=== PATIENT | male | born 1965 | race Caucasian/White ===

== ENCOUNTER 2018-02-17 11:56 | Outpatient (CLI) | payer BC | END 2018-02-17 11:57 | disposition home or self-care (01) | LOC: LABBT 11:56 | PROVIDERS: ATTEND Specialist | DX: Z01.818 Encounter for other preprocedural examination (principal); K40.90 Unilateral inguinal hernia, without obstruction or gangrene, not specified as recurrent | CPT/HCPCS: 93005; 93010 ==

== ENCOUNTER 2018-02-23 08:25 | Day surgery (SDC) | payer BC ==
--- NOTE | 2018-02-17 12:18 | HP ---
HISTORY: Thea Pérez is a 53-year-old male patient from [facility] living here for the past 19 years. For the past 4 or 5 years he has had an enlarging left inguinal hernia that has recently become painf ul to him. He is asymptomatic on the right. Exam in the office reveals clinically absence of a herni a on the right. Plan is for robotic repair of left inguinal hernia and if laparoscopically robotical ly appreciated mesh repair of a right inguinal hernia, although unlikely. ALLERGIES: PENICILLIN. MEDICATIONS: None. TOBACCO: 1/2 pack per day. ALCOHOL: None. PAST SURGICAL HISTORY: In 1994, peptic ulcer surgery, upper midline laparotomy. Left small finger s urgery. PAST MEDICAL HISTORY: Colonoscopy several years ago, normal. SOCIAL HISTORY: Patient is employed doing maintenance. He does not do heavy lifting routinely. His hernia has become more bothersome on day to day work activities. REVIEW OF SYSTEMS: Ten point noncontributory. FAMILY HISTORY: Negative. PHYSICAL EXAMINATION: VITAL SIGNS: Weight 184 pounds, 6 foot tall, 25 BMI, 154/101, 77, 97.5 degrees. HEENT: Unremarkable. LUNGS: Clear to auscultation. CARDIAC: Regular rate and rhythm without murmur or gallop. ABDOMEN: Soft, nontender, nondistended. Upper midline laparotomy scar well healed. No hernias, inc isional. : Testicles normal. Right groin without hernia on standing Valsalva maneuvers, left inguinal kanu ia present on standing and exacerbated with Valsalva. EXTREMITIES: No ankle edema. Good pulses. LYMPH: No lymphadenopathy in neck, axilla or groins. NEURO: Neurologically intact. No deficit. ASSESSMENT AND PLAN: Left inguinal hernia. Plan robotic endoscopic mesh repair and if indicated rep air on the right side. Risk of infection, bleeding, reoperation, recurrence of hernia discussed. Qu estions answered.
[2018-02-17 12:21] VITALS: BMI 25.2
[2018-02-23] MEDS ORDERED: Ketorolac Tromethamine 30 MG/ML VIAL ONE (09:41)
[2018-02-23] MEDS ORDERED: Levofloxacin 500 mg/D5W 100 ml Premix Bag ONE (09:41)
[2018-02-23] MEDS ORDERED: Bupivacaine HCl 0.5%/Epinephrine 1:200,000/PF 30 ml Vial ONE (12:11)
[2018-02-23] MEDS ORDERED: Midazolam HCl 2 mg/2 ml Vial ONE (12:46)
[2018-02-23] MEDS ORDERED: Fentanyl 100 MCG/2 ML VIAL ONE ×2 (12:46→14:38)
[2018-02-23] MEDS ORDERED: Glycopyrrolate 0.2 MG/ML 5 ML SYRINGE ONE (13:54)
[2018-02-23] MEDS ORDERED: PROPOFOL 200 MG/20 ML VIAL ONE (13:54)
[2018-02-23] MEDS ORDERED: Lidocaine 1% PF 5 ML VIAL ONE (13:54)
[2018-02-23] MEDS ORDERED: diphenhydrAMINE 50 MG/ML VIAL ONE (13:54)
[2018-02-23] MEDS ORDERED: Dexamethasone 20 MG/5 ML VIAL ONE (13:54)
[2018-02-23] MEDS ORDERED: Ondansetron HCl/PF 4 MG/2 ML Vial ONE (13:54)
[2018-02-23] MEDS ORDERED: HYDROcodone/Acetaminophen 5/325 mg Tablet ONE (17:06)
--- NOTE | 2018-02-23 21:03 | OP ---
DATE OF PROCEDURE: 02/23/2018 PREOPERATIVE DIAGNOSIS: Left inguinal hernia. POSTOPERATIVE DIAGNOSIS: Direct left inguinal hernia, PROCEDURE: 3DMax large repair of direct left inguinal hernia, robotic. SURGEON: Dr. Cory Hopkins ANESTHESIA: General. Local 0.5% Marcaine with epinephrine 30 mL. PROCEDURE: The patient was taken to the operating room. Under general anesthesia, Marsh catheter wa s placed in the beginning of the procedure and removed at the end. Abdomen prepared with ChloraPrep, draped in routine fashion. Table was flexed and placed in Trendelenburg. Because of a supraumbilic al midline incision for ulcer surgery, left lateral subcostal incision made and pneumoperitoneum to 1 5 mmHg obtained. Starts with the Veress needle and replaced with 8 mm port and robotic endoscope sofia bandar into the abdominal cavity visualizing the right subcostal area, free of adhesions and incision ma de and another 8 mm port placed. The endoscope moved to this port and visualized the midline, free o f adhesions and midline incision made supraumbilical through the old scar and an 11 mm port placed an d endoscope placed. The robot was docked, positioned and robotic hernia repair undertaken by taking down the peritoneum superiorly at the level of the anterior superior iliac spine to the midline and d eveloping the flap medially identifying Cirilo's ligament, developing laterally towards the iliac spi ne. Dissection carried out freeing the direct hernia sac free from the defect. Cord structures iden tified, dissected free. Lipoma of the cord dissected free and left with the peritoneum. Epigastric vessels identified and kept free of harm. 3DMax left mesh placed through the 11 mm port into the abd ominal cavity, positioned in proper position, sutured it to Cirilo's ligament with a 2-0 Vicryl and t hen sutured to the anterior abdominal wall with 2-0 Vicryl just lateral to the epigastric vessels. T he mesh was properly positioned and well covering the defect. Peritoneum closed with continuous sutu re of 2-0 Stratafix laterally, still covering the mesh completely. Good hernia repair undertaken. R ight inguinal area was without hernia. Good hemostasis noted. Needle was removed. Pneumoperitoneum reduced. Midline fascia with supraumbilical closed with 0 Vicryl UR needle and skin incision with s ubdermal 4-0 Monocryl and DermaGlue applied.
== END 2018-02-23 18:15 | disposition home or self-care (01) ==
LOC: SDC 08:25
PROVIDERS: ATTEND Specialist
PROC: 0YU64JZ Supplement Left Inguinal Region with Synthetic Substitute, Percutaneous Endoscopic Approach (ICD-10-PCS; principal; 2018-02-23)
DX: K40.90 Unilateral inguinal hernia, without obstruction or gangrene, not specified as recurrent (principal); Z88.0 Allergy status to penicillin
CPT/HCPCS: C1781; J0131; J0670; J1100; J1200; J1885; J1956; J2001; J2250; J2405; J2704; J3010

== ENCOUNTER 2018-06-18 09:29 | Inpatient (IN) | payer BC ==
[2018-06-18 10:34] LABS: #Eosinphils 0.2 thou/uL (0.0-0.7); #Lymphocytes 1.3 thou/uL (1.20-3.40); #Monocytes 0.5 thou/uL (0.11-0.59); #Neutrophils 8.3 thou/uL (1.40-6.50); %Basophils 0.2 % (0.0-1.0); %Lymphocytes 12.8 % (21.0-51.0); %Monocytes 4.3 % (0.0-10.0); %Neutrophils 80.7 % (42.0-75.0); Hemoglobin 13.9 g/dL (14.0-18.0); Mean Corpuscular HGB CONC 33.6 g/dL (32.0-36.0); Mean Corpuscular Hemoglobin 32.2 pg (27.0-31.0); Mean Corpuscular Volume 95.6 fL (78.0-98.0); Mean Platelet Volume 6.7 fL (7.4-10.4); Platelet Count 225 thou/uL (130-400); RBC Distribution Width 11.6 % (11.5-14.5); Red Blood Cell (RBC) Count 4.31 mill/uL (4.70-6.10); White Blood Cell (WBC) Count 10.3 thou/uL (4.8-10.8)
[2018-06-18 11:01] LABS: ALT (SGPT) 16 U/L (8-55); AST (SGOT) 16 U/L (5-34); Albumin 3.9 g/dL (3.5-5.0); Alkaline Phosphatase 33 U/L (40-150); Anion Gap 10 mmol/L (10-20); BUN (Urea Nitrogen) 20 mg/dL (8.4-25.7); Bilirubin, Total 0.4 mg/dL (0.2-1.2); Calc. Creatinine Clearance 0 mL/min (70-130); Carbon Dioxide 27 mmol/L (22-29); Chloride 102 mmol/L (98-107); Estimated GFR-MDRD Greater than 90; Glucose 111 mg/dL (70-105); Lipase 26 U/L (8-78); Potassium 4.2 mmol/L (3.5-5.1); Protein, Total 5.9 g/dL (6.0-8.3); Sodium 135 mmol/L (136-145)
--- NOTE | 2018-06-18 12:59 | CT ---
CT ABDOMEN AND PELVIS WITH IV CONTRAST: HISTORY: Left lower quadrant pain. The patient has a history of hernia surgery. FINDINGS: Comparison is made with the exam of 04/11/2018. There are mild dependent changes in the lung bases. There is a tiny amount of fluid anterior to the liver. No free air or lymphadenopathy is seen in the abdomen or pelvis. The liver, spleen, pancreas , adrenal glands, and kidneys are normal. No calcified gallstones are seen. There are vascular calc ifications without evidence of aneurysmal dilatation of the abdominal aorta. A normal-appearing appe ndix is seen. There are dilated fluid-filled loops of small bowel with a suggestion of transitional zone in the distal ileum. IMPRESSION: Findings are suggestive of small bowel obstruction. POS: RUSTY
[2018-06-18] MEDS ORDERED: Sodium Chloride 0.9% 1,000 ML IV SCH (13:45)
[2018-06-18] MEDS ORDERED: Iopamidol 370 76% 100 ML VIAL ONE (13:58)
[2018-06-18 15:47] VITALS: BMI 35.2
[2018-06-18] MEDS ORDERED: Ondansetron PF 4 MG/2 ML Vial IVP PRN (18:24)
[2018-06-18] MEDS: D5 1/2 NS w/20 mEq KCL 1,000 ML IV SCH (19:47)
[2018-06-18] MEDS: Pantoprazole 40 MG VIAL IVP SCH (19:47)
[2018-06-18] MEDS ORDERED: hydrALAZINE 20 MG/ML VIAL SLOW IVP PRN (21:38)
--- NOTE | 2018-06-18 21:44 | PDOC.EVN ---
Event Note - Event Note Event Note: consult #[id number] hydralazine prn for hypertension thank you for the consult
--- NOTE | 2018-06-18 22:22 | CON ---
DATE OF CONSULTATION: 06/18/2018 REASON FOR CONSULTATION: Medical management of hypertension. HISTORY OF PRESENT ILLNESS: This is a 53-year-old male who was initially admitted earlier today for abdominal pain with a concern for a small-bowel obstruction. At the time of my evaluation, the patient is currently n.p.o. He states that his abdominal pain is n ot severe, it is "okay." He denies any prior similar episodes. REVIEW OF SYSTEMS: As per HPI. Constitutional: Denies any fevers or chills. No headaches. No vis ion changes. Cardiovascular: No chest pain or chest pressure. Respiratory: No shortness of breath , difficulty with breathing, or congestion. Gastrointestinal: Abdominal pain as above. Currently, no active nausea. No active abdominal pain. No active diarrhea or constipation. It appears that he had a bowel movement earlier. Musculoskeletal: No active myalgias or arthralgias. Genitourinary: No dysuria or changes in urinary frequency or quality. The remainder of the review of systems is otherwise negative. PAST MEDICAL HISTORY: Significant for hernia, peptic ulcer disease. HOME MEDICATIONS: None. SOCIAL HISTORY: No alcohol, tobacco, or illicit drug use reported. FAMILY HISTORY: The patient denies any family history of hypertension, cardiovascular disease, or re nal disease. PHYSICAL EXAMINATION: GENERAL: The patient is awake, alert, appropriate. VITAL SIGNS: Temperature of 98.2, pulse of 68, respirations 16, saturating 96% on room air, blood pr essure 168/105. HEENT: Normocephalic, atraumatic. Moist mucous membranes. Extraocular motions are intact. CARDIOVASCULAR: S1, S2. No murmurs, rubs, or gallops. Pulses 2+ in bilateral upper extremities. N o pitting pedal edema. No carotid bruits. RESPIRATORY: Reasonable air movement. No conversational dyspnea. Clear to auscultation bilaterally without wheezes, rales, or rhonchi. ABDOMEN: Positive bowel sounds. Soft. Grossly nontender to palpation. MUSCULOSKELETAL: Moving all 4 extremities independently. LABORATORY DATA AND IMAGING: WBC 10.3, hemoglobin 13.9, hematocrit 41.2, platelets 225. Sodium 135, potassium 4.2, chloride 102, bicarbonate 27, BUN 20, creatinine 0.87, glucose 111, lactic acid 1.1, calcium 9, total bilirubin 0.4, AST 16, ALT 16, alkaline phosphatase 33, total protein 5.9, albumin 3 .9, globulin 2, lipase 26. 06/18/2018 CT of the abdomen and pelvis impression: "Findings are sugges tive of small-bowel obstruction." ASSESSMENT AND PLAN: This is a 53-year-old male presenting with a chief complaint of abdominal pain. 1. Abdominal pain, small-bowel obstruction concern. The patient is currently n.p.o., IV fluids, IV pain control as per Surgery management. 2. Hypertension while inpatient without a known history of hypertensive disease. Of note, the [facility] does not have a routine PCP or outpatient care, so it is not clear whether or not this is novel hy pertensive disease or perhaps undertreated chronic hypertension. Regardless, the patient is currentl y n.p.o. We will utilize p.r.n. hydralazine. Continue to closely monitor patient's vital signs. He is otherwise currently hemodynamically stable. 3. Activity: As tolerated. 4. Deep venous thrombosis prophylaxis with sequentials. Thank you for asking us to consult on the patient. We will follow along with you.
[2018-06-19] MEDS: D5 1/2 NS w/20 mEq KCL 1,000 ML IV SCH ×3 (01:29→16:38)
[2018-06-19 05:18] LABS: #Eosinphils 0.4 thou/uL (0.0-0.7); #Lymphocytes 1.9 thou/uL (1.20-3.40); #Monocytes 0.5 thou/uL (0.11-0.59); #Neutrophils 3.3 thou/uL (1.40-6.50); %Basophils 0.5 % (0.0-1.0); %Eosinophils 7.2 % (0.0-10.0); %Lymphocytes 31.1 % (21.0-51.0); %Neutrophils 53.3 % (42.0-75.0); Hemoglobin 13.9 g/dL (14.0-18.0); Mean Corpuscular HGB CONC 33.2 g/dL (32.0-36.0); Mean Corpuscular Hemoglobin 31.6 pg (27.0-31.0); Mean Corpuscular Volume 95.2 fL (78.0-98.0); Mean Platelet Volume 6.7 fL (7.4-10.4); Platelet Count 206 thou/uL (130-400); RBC Distribution Width 11.5 % (11.5-14.5); Red Blood Cell (RBC) Count 4.39 mill/uL (4.70-6.10); White Blood Cell (WBC) Count 6.2 thou/uL (4.8-10.8)
[2018-06-19 05:30] LABS: Anion Gap 8 mmol/L (10-20); BUN (Urea Nitrogen) 12 mg/dL (8.4-25.7); Calc. Creatinine Clearance 185 mL/min (70-130); Calcium 8.7 mg/dL (7.8-10.44); Carbon Dioxide 28 mmol/L (22-29); Chloride 108 mmol/L (98-107); Estimated GFR-MDRD Greater than 90; Glucose 105 mg/dL (70-105); Potassium 3.8 mmol/L (3.5-5.1); Sodium 140 mmol/L (136-145)
[2018-06-19] MEDS ORDERED: Acetaminophen 650 MG Suppository PR PRN (07:30)
[2018-06-19] MEDS ORDERED: Bisacodyl 10 MG SUPP PR PRN (07:30)
[2018-06-19] MEDS ORDERED: Eucerin (Mineral Oil/Petrolatum,White) 30 gm Jar TOP PRN (07:30)
[2018-06-19] MEDS ORDERED: Sodium Chloride 0.65% Nasal 44 ML BOT EA NARE PRN (07:30)
[2018-06-19] MEDS ORDERED: Artificial Tears 18 DROP/0.9 ML EA EYE PRN (07:30)
[2018-06-19] MEDS ORDERED: Morphine 2 MG/ML SYRINGE SLOW IVP PRN (10:00)
--- NOTE | 2018-06-19 10:37 | PDOC.PN ---
- Subjective Encounter Start Date: 06/19/18 Encounter Start Time: 08:15 -: old records requested/rev Patient seen and examined. No new complaints. No overnight events he had BM this morning and he is passing gas - Objective MAR Reviewed: Yes Vital Signs & Weight: Vital Signs (12 hours) Temp Pulse Resp BP Pulse Ox 06/19/18 07:28 99.3 F 70 14 134/89 98 06/19/18 04:27 98.2 F 68 16 154/102 H 96 06/19/18 00:00 98.3 F 72 16 147/83 H 96 Weight Weight 260 lb Result Diagrams: 06/19/18 04:54 06/19/18 04:54 Radiology Reviewed by me: Yes Phys Exam - Physical Examination Constitutional: NAD HEENT: PERRLA, moist MMs, sclera anicteric Neck: no JVD, supple Respiratory: no wheezing, no rales, no rhonchi Cardiovascular: RRR, no significant murmur, no rub Gastrointestinal: soft, non-tender, no distention, positive bowel sounds Musculoskeletal: no edema, pulses present Neurological: non-focal, normal sensation, moves all 4 limbs Psychiatric: normal affect, A&O x 3 Skin: no rash, normal turgor Dx/Plan (1) SBO (small bowel obstruction) Code(s): K56.609 - UNSP INTESTNL OBST, UNSP TO PARTIAL VERSUS COMPLETE OBST Status: Acute (2) Hypertension Code(s): I10 - ESSENTIAL (PRIMARY) HYPERTENSION Status: Chronic (3) Obesity (BMI 30-39.9) Code(s): E66.9 - OBESITY, UNSPECIFIED Status: Chronic - Plan cont current plan of care, plan discussed w/ family * seems like his SBO has improved * Diet advancement as per primary team * as pt was not on BP meds at home, and his BP seems controlled, he will need outpt follow up and monitoring * discussed with * discharge per primary team * code status- full code. Review of Systems - Review of Systems ENT: negative: Ear Pain, Ear Discharge, Nose Pain, Nose Discharge, Nose Congestion, Mouth Pain, Mouth Swelling, Throat Pain, Throat Swelling, Other Respiratory: negative: Cough, Dry, Shortness of Breath, Hemoptysis, SOB with Excertion, Pleuritic Pain, Sputum, Wheezing Cardiovascular: negative: chest pain, palpitations, orthopnea, paroxysmal nocturnal dyspnea, edema, light headedness, other Gastrointestinal: negative: Nausea, Vomiting, Abdominal Pain, Diarrhea, Constipation, Melena, Hematochezia, Other Genitourinary: negative: Dysuria, Frequency, Incontinence, Hematuria, Retention , Other Musculoskeletal: negative: Neck Pain, Shoulder Pain, Arm Pain, Back Pain, Hand Pain, Leg Pain, Foot Pain, Other Skin: negative: Rash, Lesions, Jean, Bruising, Other - Medications/Allergies Allergies/Adverse Reactions: Allergies Allergy/AdvReac Type Severity Reaction Status Date / Time Penicillins Allergy Verified 02/17/18 12:22 Medications: Current Medications Acetaminophen (Tylenol) 650 mg [place] Q4H PRN PRN Reason: Fever > 101 Artificial Tears (Tears Naturale) 2 drop EA EYE PRN PRN PRN Reason: Dry Eyes Bisacodyl (Dulcolax) 10 mg [place] DAILYPRN PRN PRN Reason: Constipation Hydralazine HCl (Apresoline) 10 mg SLOW IVP Q4H PRN PRN Reason: Hypertension Potassium Chloride/Dextrose/Sod Cl (D5 1/2 Ns W/20 Meq Kcl) 1,000 mls @ 125 mls /hr IV .Q8H DORON Last Admin: 06/19/18 09:31 Dose: 1,000 mls Mineral Oil/White Petrolatum (Eucerin Cream) 0 gm TOP BIDPRN PRN PRN Reason: Dry Skin Morphine Sulfate (Morphine) 2 mg SLOW IVP Q4H PRN PRN Reason: Severe Pain (7-10) Last Admin: 06/19/18 10:14 Dose: 2 mg Ondansetron HCl (Zofran) 4 mg IVP Q4H PRN PRN Reason: Nausea/Vomiting Pantoprazole Sodium (Protonix) 40 mg IVP 2100 DORON Last Admin: 06/18/18 19:47 Dose: 40 mg Sodium Chloride (Flush - Normal Saline) 10 ml IVF Q12HR DORON Sodium Chloride (Flush - Normal Saline) 10 ml IVF PRN PRN PRN Reason: Saline Flush Sodium Chloride ([place] Nasal [place] 0.65%) 0 ml EA NARE QIDPRN PRN PRN Reason: Nasal Congestion
--- NOTE | 2018-06-19 12:00 | RAD ---
KUB: HISTORY: Small bowel obstruction. COMPARISON: CT examination done earlier yesterday. FINDINGS: There is air within both small and large bowel, still with some small bowel distention. The loops ar e predominantly fluid-filled and, therefore, more difficult to assess. There is air throughout the c olon. IMPRESSION: Persistent distention of some of the small bowel loops, some of which appear fluid-filled. It does n ot appear worse and may be slightly improved as compared to the prior study. POS: RUSTY
--- NOTE | 2018-06-19 12:52 | HP ---
CHIEF COMPLAINT: Abdominal pain. HISTORY OF PRESENT ILLNESS: This is a 53-year-old male in his usual state of health until about 24 h ours ago when he developed mid lower abdominal pain associated with nausea and diaphoresis. He was b rought in where a CT scan suggested a small-bowel obstruction. He reports that he had a left inguina l hernia repair in February and since then, he has been having chronic pain. He said he had a bowel move ment today and a little bit of flatus, but he does feel better. PAST MEDICAL HISTORY: Otherwise, healthy. PAST SURGICAL HISTORY: Left inguinal hernia repair. He had an ulcer surgery in [facility] in 1994. MEDICATIONS: He is on no medications. ALLERGIES: He is allergic to PENICILLIN. SOCIAL HISTORY: He is . He is a vehicle maintenance technician. No tobacco or alcohol. He speaks [place] an. FAMILY HISTORY: Diabetes. PHYSICAL EXAMINATION: VITAL SIGNS: Temperature 99.3, pulse 70, blood pressure 134/89. GENERAL: He is awake, alert, in no apparent distress. He does not have an NG tube. Attempts x3 wer e unsuccessful due to sinus problems and he refuses an NG tube. LUNGS: Clear. HEART: Regular rate and rhythm. ABDOMEN: Soft. He has a well-healed surgical scar in the upper midline and in the left inguinal are a. There are no palpable hernias. EXTREMITIES: Unremarkable. LABORATORY AND X-RAY FINDINGS: White count 6.2, H and H 13 and 41, platelet count 206,000. Electrol ytes are fine. KUB shows some dilated loops of small bowel, but it appears to be slightly improved. ASSESSMENT: Small-bowel obstruction. PLAN: Bowel rest. IV fluids.
[2018-06-19] MEDS: Pantoprazole 40 MG VIAL IVP SCH (20:43)
[2018-06-20] MEDS: D5 1/2 NS w/20 mEq KCL 1,000 ML IV SCH ×3 (00:50→18:29)
--- NOTE | 2018-06-20 09:24 | RAD ---
ABDOMEN 1 VIEW: HISTORY: A 53-year-old male with a history of small bowel obstruction. COMPARISON: 06/19/2018. FINDINGS: There is some gas in the colon. There are some mildly dilated loops of small bowel with some air and fluid within them in the mid abdomen. IMPRESSION: Evidence for some persistent at least partial small bowel obstruction. Continue short-term followup and consider the possibility of a Gastrografin small bowel for further assessment. POS: RUSTY
--- NOTE | 2018-06-20 09:43 | PDOC.PN ---
- Subjective Encounter Start Date: 06/20/18 Encounter Start Time: 08:00 Patient seen and examined. No new complaints. No overnight events - Objective MAR Reviewed: Yes Vital Signs & Weight: Vital Signs (12 hours) Temp Pulse Resp BP Pulse Ox 06/20/18 07:58 98.2 F 65 16 145/97 H 94 L 06/20/18 03:53 98.1 F 67 16 148/95 H 94 L 06/20/18 00:00 98 F 68 16 144/87 H 94 L Weight Weight 260 lb I&O: 06/19/18 06/20/18 06/21/18 06:59 06:59 06:59 Intake Total 880 1500 Balance 880 1500 Result Diagrams: 06/19/18 04:54 06/19/18 04:54 Radiology Reviewed by me: Yes (xray abdomen reviewed) Phys Exam - Physical Examination Constitutional: NAD HEENT: PERRLA, moist MMs, sclera anicteric Neck: no JVD, supple Respiratory: no wheezing, no rales, no rhonchi Cardiovascular: RRR, no significant murmur, no rub Gastrointestinal: soft, non-tender, no distention, positive bowel sounds Musculoskeletal: no edema, pulses present Neurological: non-focal, normal sensation, moves all 4 limbs Psychiatric: normal affect, A&O x 3 Skin: no rash, normal turgor Dx/Plan (1) SBO (small bowel obstruction) Code(s): K56.609 - UNSP INTESTNL OBST, UNSP TO PARTIAL VERSUS COMPLETE OBST Status: Acute (2) Hypertension Code(s): I10 - ESSENTIAL (PRIMARY) HYPERTENSION Status: Chronic (3) Obesity (BMI 30-39.9) Code(s): E66.9 - OBESITY, UNSPECIFIED Status: Chronic - Plan cont current plan of care, plan discussed w/ family * medication reviewed as below * symptomatic treatment * diet advancement as per primary team * medically stable Review of Systems - Review of Systems Eyes: negative: Pain, Vision Change, Conjunctivae Inflammation, Eyelid Inflammation, Redness, Other ENT: negative: Ear Pain, Ear Discharge, Nose Pain, Nose Discharge, Nose Congestion, Mouth Pain, Mouth Swelling, Throat Pain, Throat Swelling, Other Respiratory: negative: Cough, Dry, Shortness of Breath, Hemoptysis, SOB with Excertion, Pleuritic Pain, Sputum, Wheezing Cardiovascular: negative: chest pain, palpitations, orthopnea, paroxysmal nocturnal dyspnea, edema, light headedness, other Gastrointestinal: negative: Nausea, Vomiting, Abdominal Pain, Diarrhea, Constipation, Melena, Hematochezia, Other Genitourinary: negative: Dysuria, Frequency, Incontinence, Hematuria, Retention , Other Musculoskeletal: negative: Neck Pain, Shoulder Pain, Arm Pain, Back Pain, Hand Pain, Leg Pain, Foot Pain, Other Skin: negative: Rash, Lesions, Jean, Bruising, Other - Medications/Allergies Allergies/Adverse Reactions: Allergies Allergy/AdvReac Type Severity Reaction Status Date / Time Penicillins Allergy Verified 02/17/18 12:22 Medications: Current Medications Acetaminophen (Tylenol) [address] Q4H PRN PRN Reason: Fever > 101 Artificial Tears (Tears Naturale) 2 drop EA EYE PRN PRN PRN Reason: Dry Eyes Bisacodyl (Dulcolax) [address] DAILYPRN PRN PRN Reason: Constipation Hydralazine HCl (Apresoline) 10 mg SLOW IVP Q4H PRN PRN Reason: Hypertension Potassium Chloride/Dextrose/Sod Cl (D5 1/2 Ns W/20 Meq Kcl) 1,000 mls @ 125 mls /hr IV .Q8H DORON Last Admin: 06/20/18 08:52 Dose: 1,000 mls Mineral Oil/White Petrolatum (Eucerin Cream) 0 gm TOP BIDPRN PRN PRN Reason: Dry Skin Morphine Sulfate (Morphine) 2 mg SLOW IVP Q4H PRN PRN Reason: Severe Pain (7-10) Last Admin: 06/19/18 10:14 Dose: 2 mg Ondansetron HCl (Zofran) 4 mg IVP Q4H PRN PRN Reason: Nausea/Vomiting Pantoprazole Sodium (Protonix) 40 mg IVP 2100 DORON Last Admin: 06/19/18 20:43 Dose: 40 mg Sodium Chloride (Flush - Normal Saline) 10 ml IVF Q12HR DORON Last Admin: 06/20/18 09:03 Dose: Not Given Sodium Chloride (Flush - Normal Saline) 10 ml IVF PRN PRN PRN Reason: Saline Flush Sodium Chloride ([place] Nasal [place] 0.65%) 0 ml EA NARE QIDPRN PRN PRN Reason: Nasal Congestion
--- NOTE | 2018-06-20 09:43 | PRG ---
DATE OF SERVICE: 06/20/2018 SUBJECTIVE: The patient feels a lot better. He is having no pain. No nausea or vomiting. He is pa ssing gas, passing bowel movements. X-ray is much improved. There was still a tiny little area of d ilated small bowel, but he had a lot of air in his colon. OBJECTIVE: VITAL SIGNS: His temperature is 98.2, pulse 65, blood pressure 145/97. GENERAL: He looks good. ABDOMEN: Soft, nondistended, nontender. ASSESSMENT: Small-bowel obstruction, resolving. PLAN: Begin clear liquids.
[2018-06-20] MEDS: Pantoprazole 40 MG VIAL IVP SCH (21:34)
[2018-06-21] MEDS: D5 1/2 NS w/20 mEq KCL 1,000 ML IV SCH ×3 (03:16→21:32)
--- NOTE | 2018-06-21 07:43 | PRG ---
DATE OF SERVICE: 06/21/2018 SUBJECTIVE: The patient states he has no abdominal pain, no nausea or vomiting, but is not passing a ny flatus nor bowel movement. He tried drinking fluids and when he did try to drink some clear liqui ds he did have some abdominal pain and cramps. PHYSICAL EXAMINATION: VITAL SIGNS: Temperature is 97.9, pulse 72, blood pressure 146/93. GENERAL: He looks fine, in no apparent distress. ABDOMEN: Soft, nondistended. He has some bowel sounds present. ASSESSMENT: Partial small-bowel obstruction. PLAN: Small bowel follow through today.
--- NOTE | 2018-06-21 09:52 | PDOC.PN ---
- Subjective Encounter Start Date: 06/21/18 Encounter Start Time: 08:30 Patient seen and examined. No new complaints. No overnight events he does not pass gas or had BM - Objective MAR Reviewed: Yes Vital Signs & Weight: Vital Signs (12 hours) Temp Pulse Resp BP Pulse Ox 06/21/18 08:27 98.1 F 74 16 145/90 H 95 06/21/18 04:00 97.9 F 72 16 146/93 H 96 06/20/18 23:43 97.9 F 62 16 165/98 H 97 Weight Weight 260 lb I&O: 06/20/18 06/21/18 06/22/18 06:59 06:59 06:59 Intake Total 880 1500 1500 Balance 880 1500 1500 Result Diagrams: 06/19/18 04:54 06/19/18 04:54 Radiology Reviewed by me: Yes (small bowel xray) Phys Exam - Physical Examination Constitutional: NAD HEENT: PERRLA, moist MMs, sclera anicteric Neck: no JVD, supple Respiratory: no wheezing, no rales, no rhonchi Cardiovascular: RRR, no significant murmur, no rub Gastrointestinal: soft, non-tender, no distention, positive bowel sounds Musculoskeletal: no edema, pulses present Neurological: non-focal, normal sensation, moves all 4 limbs Lymphatic: no nodes Psychiatric: normal affect, A&O x 3 Skin: no rash, normal turgor Dx/Plan (1) SBO (small bowel obstruction) Code(s): K56.609 - UNSP INTESTNL OBST, UNSP TO PARTIAL VERSUS COMPLETE OBST Status: Acute (2) Hypertension Code(s): I10 - ESSENTIAL (PRIMARY) HYPERTENSION Status: Chronic (3) Obesity (BMI 30-39.9) Code(s): E66.9 - OBESITY, UNSPECIFIED Status: Chronic - Plan cont current plan of care, plan discussed w/ family * small bowel xray today * further plan based on result above * medication reviewed as below * symptomatic treatment * overall doing well. Review of Systems - Review of Systems ENT: negative: Ear Pain, Ear Discharge, Nose Pain, Nose Discharge, Nose Congestion, Mouth Pain, Mouth Swelling, Throat Pain, Throat Swelling, Other Respiratory: negative: Cough, Dry, Shortness of Breath, Hemoptysis, SOB with Excertion, Pleuritic Pain, Sputum, Wheezing Cardiovascular: negative: chest pain, palpitations, orthopnea, paroxysmal nocturnal dyspnea, edema, light headedness, other Gastrointestinal: negative: Nausea, Vomiting, Abdominal Pain, Diarrhea, Constipation, Melena, Hematochezia, Other Genitourinary: negative: Dysuria, Frequency, Incontinence, Hematuria, Retention , Other Musculoskeletal: negative: Neck Pain, Shoulder Pain, Arm Pain, Back Pain, Hand Pain, Leg Pain, Foot Pain, Other Skin: negative: Rash, Lesions, Jean, Bruising, Other - Medications/Allergies Allergies/Adverse Reactions: Allergies Allergy/AdvReac Type Severity Reaction Status Date / Time Penicillins Allergy Verified 02/17/18 12:22 Medications: Current Medications Acetaminophen (Tylenol) 650 mg [place] Q4H PRN PRN Reason: Fever > 101 Artificial Tears (Tears Naturale) 2 drop EA EYE PRN PRN PRN Reason: Dry Eyes Bisacodyl (Dulcolax) 10 mg [place] DAILYPRN PRN PRN Reason: Constipation Hydralazine HCl (Apresoline) 10 mg SLOW IVP Q4H PRN PRN Reason: Hypertension Last Admin: 06/20/18 21:33 Dose: 10 mg Potassium Chloride/Dextrose/Sod Cl (D5 1/2 Ns W/20 Meq Kcl) 1,000 mls @ 125 mls /hr IV .Q8H DORON Last Admin: 06/21/18 03:16 Dose: 1,000 mls Mineral Oil/White Petrolatum (Eucerin Cream) 0 gm TOP BIDPRN PRN PRN Reason: Dry Skin Morphine Sulfate (Morphine) 2 mg SLOW IVP Q4H PRN PRN Reason: Severe Pain (7-10) Last Admin: 06/19/18 10:14 Dose: 2 mg Ondansetron HCl (Zofran) 4 mg IVP Q4H PRN PRN Reason: Nausea/Vomiting Pantoprazole Sodium (Protonix) 40 mg IVP 2100 DORON Last Admin: 06/20/18 21:34 Dose: 40 mg Sodium Chloride (Flush - Normal Saline) 10 ml IVF Q12HR DORON Last Admin: 06/20/18 21:42 Dose: Not Given Sodium Chloride (Flush - Normal Saline) 10 ml IVF PRN PRN PRN Reason: Saline Flush Sodium Chloride ([place] Nasal [place] 0.65%) 0 ml EA NARE QIDPRN PRN PRN Reason: Nasal Congestion
--- NOTE | 2018-06-21 12:02 | RAD ---
SMALL BOWEL SERIES: HISTORY: A 53-year-old male with a history of small bowel obstruction. TECHNIQUE: The patient was given oral Gastrografin by mouth. FINDINGS: A 15 minute overhead examination reveals the Gastrografin contrast to have completely progressed thro ugh the small bowel, entering the colon. No evidence for significant small bowel obstruction. IMPRESSION: Rapid progression of oral contrast through the entire small bowel, entering the colon in about 15 min utes. No evidence for significant small bowel obstruction. POS: [facility]
[2018-06-21] MEDS ORDERED: MD-Gastroview 120 ML BOT ONE (16:15)
[2018-06-21] MEDS: Pantoprazole 40 MG VIAL IVP SCH (21:27)
[2018-06-22] MEDS: D5 1/2 NS w/20 mEq KCL 1,000 ML IV SCH ×2 (02:23→11:52)
[2018-06-22] MEDS ORDERED: Acetaminophen 500 MG TAB PO PRN (09:00)
--- NOTE | 2018-06-22 09:56 | PDOC.PN ---
- Subjective Encounter Start Date: 06/22/18 Encounter Start Time: 07:50 Patient seen and examined. No new complaints. No overnight events - Objective MAR Reviewed: Yes Vital Signs & Weight: Vital Signs (12 hours) Temp Pulse Resp BP Pulse Ox 06/22/18 07:10 98.2 F 90 18 128/87 95 06/22/18 04:20 98.3 F 71 18 137/91 H 97 06/22/18 00:34 98.3 F 76 18 143/92 H 96 Weight Weight 260 lb I&O: 06/21/18 06/22/18 06/23/18 06:59 06:59 06:59 Intake Total 1500 3230 Balance 1500 3230 Result Diagrams: 06/19/18 04:54 06/19/18 04:54 Radiology Reviewed by me: Yes Phys Exam - Physical Examination Constitutional: NAD HEENT: PERRLA, moist MMs, sclera anicteric Neck: no JVD, supple Respiratory: no wheezing, no rales, no rhonchi Cardiovascular: RRR, no significant murmur, no rub Gastrointestinal: soft, non-tender, no distention, positive bowel sounds Musculoskeletal: no edema, pulses present Neurological: non-focal, normal sensation, moves all 4 limbs Psychiatric: normal affect, A&O x 3 Skin: no rash, normal turgor Dx/Plan (1) SBO (small bowel obstruction) Code(s): K56.609 - UNSP INTESTNL OBST, UNSP TO PARTIAL VERSUS COMPLETE OBST Status: Acute (2) Hypertension Code(s): I10 - ESSENTIAL (PRIMARY) HYPERTENSION Status: Chronic (3) Obesity (BMI 30-39.9) Code(s): E66.9 - OBESITY, UNSPECIFIED Status: Chronic - Plan cont current plan of care, plan discussed w/ family * SBO resolved * medically stable for discharge * dietary instruction given * discussed with * will sing off. Review of Systems - Review of Systems ENT: negative: Ear Pain, Ear Discharge, Nose Pain, Nose Discharge, Nose Congestion, Mouth Pain, Mouth Swelling, Throat Pain, Throat Swelling, Other Respiratory: negative: Cough, Dry, Shortness of Breath, Hemoptysis, SOB with Excertion, Pleuritic Pain, Sputum, Wheezing Cardiovascular: negative: chest pain, palpitations, orthopnea, paroxysmal nocturnal dyspnea, edema, light headedness, other Gastrointestinal: negative: Nausea, Vomiting, Abdominal Pain, Diarrhea, Constipation, Melena, Hematochezia, Other Genitourinary: negative: Dysuria, Frequency, Incontinence, Hematuria, Retention , Other Musculoskeletal: negative: Neck Pain, Shoulder Pain, Arm Pain, Back Pain, Hand Pain, Leg Pain, Foot Pain, Other Skin: negative: Rash, Lesions, Jean, Bruising, Other - Medications/Allergies Allergies/Adverse Reactions: Allergies Allergy/AdvReac Type Severity Reaction Status Date / Time Penicillins Allergy Verified 02/17/18 12:22 Medications: Current Medications Acetaminophen (Tylenol) 1,000 mg PO Q4H PRN PRN Reason: Mild-Moderate Pain (1-6) Last Admin: 06/22/18 09:18 Dose: 1,000 mg Artificial Tears (Tears Naturale) 2 drop EA EYE PRN PRN PRN Reason: Dry Eyes Bisacodyl (Dulcolax) 10 mg IA DAILYPRN PRN PRN Reason: Constipation Hydralazine HCl (Apresoline) 10 mg SLOW IVP Q4H PRN PRN Reason: Hypertension Last Admin: 06/20/18 21:33 Dose: 10 mg Potassium Chloride/Dextrose/Sod Cl (D5 1/2 Ns W/20 Meq Kcl) 1,000 mls @ 125 mls /hr IV .Q8H DORON Last Admin: 06/22/18 02:23 Dose: 1,000 mls Mineral Oil/White Petrolatum (Eucerin Cream) 0 gm TOP BIDPRN PRN PRN Reason: Dry Skin Morphine Sulfate (Morphine) 2 mg SLOW IVP Q4H PRN PRN Reason: Severe Pain (7-10) Last Admin: 06/19/18 10:14 Dose: 2 mg Ondansetron HCl (Zofran) 4 mg IVP Q4H PRN PRN Reason: Nausea/Vomiting Pantoprazole Sodium (Protonix) 40 mg IVP 2100 DORON Last Admin: 06/21/18 21:27 Dose: 40 mg Sodium Chloride (Flush - Normal Saline) 10 ml IVF Q12HR DORON Last Admin: 06/22/18 09:16 Dose: Not Given Sodium Chloride (Flush - Normal Saline) 10 ml IVF PRN PRN PRN Reason: Saline Flush Sodium Chloride (Carnuel Nasal Moss 0.65%) 0 ml EA NARE QIDPRN PRN PRN Reason: Nasal Congestion
[2018-06-22 10:57] VITALS: BP 136/82; TEMP 98
--- NOTE | 2018-06-22 11:00 | DIS ---
PRIMARY CARE PHYSICIAN: [facility] call admission. DATE OF ADMISSION: 06/18/2018 DATE OF DISCHARGE: 06/22/2018 DISCHARGE DISPOSITION: Home. PRIMARY DISCHARGE DIAGNOSES: 1. Small-bowel obstruction, resolved. 2. Hypertension. 3. Obesity with BMI 35. PRIMARY PROCEDURE/OPERATION: None. RADIOLOGICAL INVESTIGATION: Abdomen and pelvis CT scan showed small-bowel obstruction. Small bowel x-ray showed resolution of small-bowel obstruction. SIGNIFICANT LABORATORY DATA: WBC 6.2, hemoglobin 13.9, platelet 206. Sodium 140, potassium 3.8, BUN 12, creatinine 0.78, calcium 8.7. LFT normal. DISCHARGE MEDICATIONS: The patient does not need any new medication at this point, we advised him th at as patient was not taking any blood pressure medication and his blood pressure remained pretty muc h normal range, so we deferred follow up with primary care physician to start antihypertensive medica tion if needed. CONTRAINDICATIONS: None. CODE STATUS: FULL CODE. INPATIENT CONSULTANTS: Dr. Schulz was primary. Sound Team was consulted for medical management. TEST RESULTS PENDING ON DISCHARGE: None. ALLERGIES: PENICILLIN. DISCHARGE PLAN: Post hospital, the patient will follow up with primary care physician and Dr. Schulz as instructed. HOSPITAL COURSE: A 53-year-old male who was admitted by Dr. Schulz for small-bowel obstruction. This patient came to emergency room for abdominal pain. He was not passing gas and he was not having any BM. In the emergency room, CT of the abdomen and pelvis confirmed small-bowel obstruction. He was monitored conservatively with abdomen x-ray. He did not require any NG tube or low intermittent suct ion. He had small bowel x-ray which showed resolution of small-bowel obstruction. Dietary instructi on given. We were consulted for hypertension, but the patient's blood pressure remained normal most of the time while in the hospital. We did not start antihypertensive medication and the patient is i nstructed to monitor blood pressure at home and follow up with primary care physician in case if he n eeds blood pressure medication. At this point, the patient is tolerating his diet and if primary team is okay, then this patient is m edically stable for discharge later on today.
--- NOTE | 2018-06-22 14:05 | PRG ---
DATE OF SERVICE: 06/22/2018 SUBJECTIVE: Thea Pérez is doing well today. He is tolerating his diet. He is having regular pollo l movements. He denies having any pain. He is discharged home at this time with followup in my offi ce as needed.
--- NOTE | 2018-06-22 23:49 | DIS ---
DATE OF ADMISSION: 06/18/2018 DATE OF DISCHARGE: 06/22/2018 DISCHARGE DIAGNOSES: Abdominal pain, ileus, uncertain etiology. PROCEDURES: Small bowel follow through, CAT scan of abdomen and pelvis in the emergency room on admi ssion and serial abdominal x-rays. HISTORY: A 53-year-old male patient who presents to the emergency room with lower abdominal pain, na usea, diaphoresis. CAT scan obtained, suggested small-bowel obstruction. He is status post robotic left inguinal hernia repair with mesh in February. He has had regular bowel movements. He presented to the emergency room and by the time Dr. Schulz saw him after his CAT scan, he already had a bowel movem ent and feeling better. He had a small bowel follow through, it was normal. The patient is admitted , diet advanced and he was discharged home on 06/22/2018. Follow up as needed.
== END 2018-06-22 14:03 | disposition home or self-care (01) | DRG 390 ==
LOC: ERS 09:29 → OBSVTOIN 11:40 → SURG A 11:40
PROVIDERS: ADMIT Surgery; ATTEND Surgery
DX: K56.609 Unspecified intestinal obstruction, unspecified as to partial versus complete obstruction (principal); E66.9 Obesity, unspecified; Z68.35 Body mass index [BMI] 35.0-35.9, adult; I10 Essential (primary) hypertension; Z88.0 Allergy status to penicillin
CPT/HCPCS: 36415; 74018; 74177; 74250; 80048; 80053; 83605; 83690; 85025; 93005; 96360; C9113; J0360; J2270

== ENCOUNTER 2018-10-19 07:32 | Observation (INO) | payer BC ==
[2018-10-19 08:02] LABS: #Basophils 0.1 thou/uL (0.0-0.2); #Eosinphils 0.3 thou/uL (0.0-0.7); #Lymphocytes 1.2 thou/uL (1.20-3.40); #Monocytes 0.4 thou/uL (0.11-0.59); #Neutrophils 5.7 thou/uL (1.40-6.50); %Basophils 0.7 % (0.0-1.0); %Eosinophils 4.3 % (0.0-10.0); %Lymphocytes 15.3 % (21.0-51.0); %Monocytes 5.6 % (0.0-10.0); %Neutrophils 74.2 % (42.0-75.0); Hemoglobin 14.7 g/dL (14.0-18.0); Mean Corpuscular HGB CONC 34.3 g/dL (32.0-36.0); Mean Corpuscular Hemoglobin 32.4 pg (27.0-31.0); Mean Corpuscular Volume 94.4 fL (78.0-98.0); Mean Platelet Volume 6.4 fL (7.4-10.4); Platelet Count 232 thou/uL (130-400); RBC Distribution Width 11.5 % (11.5-14.5); Red Blood Cell (RBC) Count 4.54 mill/uL (4.70-6.10); White Blood Cell (WBC) Count 7.7 thou/uL (4.8-10.8)
[2018-10-19 08:21] LABS: ALT (SGPT) 17 U/L (8-55); AST (SGOT) 16 U/L (5-34); Albumin 4.4 g/dL (3.5-5.0); Alkaline Phosphatase 39 U/L (40-150); Anion Gap 14 mmol/L (10-20); BUN (Urea Nitrogen) 16 mg/dL (8.4-25.7); Bilirubin, Total 0.7 mg/dL (0.2-1.2); Calc. Creatinine Clearance 0 mL/min (70-130); Calcium 9.5 mg/dL (7.8-10.44); Carbon Dioxide 26 mmol/L (22-29); Chloride 103 mmol/L (98-107); Estimated GFR-MDRD 89; Globulin 2.4 g/dL (2.4-3.5); Glucose 104 mg/dL (70-105); Lipase 23 U/L (8-78); Potassium 4.6 mmol/L (3.5-5.1); Protein, Total 6.8 g/dL (6.0-8.3); Sodium 138 mmol/L (136-145)
[2018-10-19 08:27] LABS: Bilirubin Negative (Negative); Blood, Urine Negative (Negative); Glucose, Urine (Dipstick) Negative (Negative); Leukocyte Negative (Negative); Nitrite Negative (Negative); Protein, Urine (Dipstick) Negative (Neg-Trace); Specific Gravity, Urine 1.015 (1.005-1.030); Urobilinogen 0.2 mg/dL (0.2-1.0)
[2018-10-19 08:28] LABS: Clarity Hazy (Clear)
[2018-10-19 08:36] LABS: Bacteria/HPF None Seen HPF (None Seen); RBC/HPF 0-3 HPF (0-3); Squamous Epithelial 0-3 HPF (0-3); WBC/HPF 0-3 HPF (0-3)
[2018-10-19 08:37] LABS: Crystals/HPF 3+ AMORPH PHOS HPF (Negative); Hyaline Casts/LPF 0-3 HYALINE CAST LPF (0-3 Hyaline)
[2018-10-19] MEDS ORDERED: Morphine 4 MG/ML VIAL ONE ×2 (08:43→08:46)
[2018-10-19] MEDS ORDERED: Pantoprazole 40 MG VIAL ONE (08:43)
[2018-10-19] MEDS ORDERED: Ondansetron PF 4 MG/2 ML Vial ONE ×2 (08:43→13:50)
--- NOTE | 2018-10-19 08:54 | RAD ---
SINGLE VIEW OF THE CHEST: Comparison: None. History: Abdominal pain. FINDINGS: Single view of the chest shows a normal sized cardiomediastinal silhouette. There is no evidence of c onsolidation, mass, or pleural effusion. The bones are unremarkable. IMPRESSION: No evidence of acute cardiopulmonary disease. POS: [facility]
--- NOTE | 2018-10-19 09:56 | ULT ---
RIGHT UPPER QUADRANT ULTRASOUND: INDICATIONS: Right upper quadrant pain with nausea and vomiting. COMPARISON: Prior complete abdomen ultrasound dated 01/19/2013, performed at [facility], and a CT of the abdomen and pelvis with contrast, performed at [facility] on 06/18/2018. TECHNIQUE: Lawrence-scale and color Doppler with spectral Doppler images were obtained of the right upper quadrant o f the abdomen. FINDINGS: The pancreas is largely obscured, but the visualized pancreatic head appears within normal limits. The liver demonstrates very slight increased echogenicity when compared to the right renal parenchyma , consistent with mild fatty infiltration. The liver measures 17.4 cm longitudinally. The gallbladder is distended with multiple stones and gallbladder sludge. There is thickening of the gallbladder wall, measuring 3.5 mm. The field installation technician does report a sonographic Hollis sign. The common bile duct measures 4 mm, which is within normal limits. The right kidney measures 10.9 x 4.7 x 5.6 cm and demonstrates no focal renal lesion or hydronephrosi s. IMPRESSION: Cholelithiasis with gallbladder sludge and gallbladder wall thickening and report of a sonographic Mu rphy sign is suspicious sonographically for acute cholecystitis. Would recommend correlation with a clinical examination. POS: [facility]
[2018-10-19] MEDS ORDERED: Levofloxacin 500 mg/D5W 100 ml Premix Bag ONE (10:13)
[2018-10-19] MEDS ORDERED: hydrALAZINE 20 MG/ML VIAL SLOW IVP PRN (10:49)
[2018-10-19] MEDS ORDERED: Acetaminophen 325 MG TAB PO PRN (10:49)
[2018-10-19] MEDS ORDERED: Dextrose 5% in Water 1,000 ML IV PRN (10:49)
[2018-10-19] MEDS ORDERED: Calcium Carbonate 500 MG ChewTAB PO PRN (10:49)
[2018-10-19] MEDS ORDERED: Dextrose 50% Abboject 50 ML SYRINGE SLOW IVP PRN (10:49)
[2018-10-19] MEDS ORDERED: Ondansetron PF 4 MG/2 ML Vial IVP PRN (10:49)
[2018-10-19] MEDS ORDERED: Promethazine HCl 25 MG/ML VIAL IM PRN ×2 (10:49→16:24)
[2018-10-19] MEDS ORDERED: Mag-Al 1200 mg/1200 mg/30 ML UDCUP PO PRN (10:49)
[2018-10-19] MEDS ORDERED: Acetaminophen 1,000 MG in Premix Bag 1 BAG IVPB SCH (11:00)
[2018-10-19] MEDS ORDERED: cefOXitin 2 GM in Sodium Chloride 0.9% 100 ML IVPB SCH (11:00)
[2018-10-19] MEDS ORDERED: Ketorolac Tromethamine 30 MG/ML VIAL ONE (11:06)
--- NOTE | 2018-10-19 12:32 | HP ---
HISTORY OF PRESENT ILLNESS: The patient is a 53-year-old man, who has been having recurrence of right upper quadrant pain starting in June to his knowledge that had gotten markedly worse last night. He presented to the emergency room this morning, where he underwent evaluation and examination and was noted to have an acute cholecystitis with cholelithiasis, at which time we were asked to evaluate the patient for laparoscopic cholecystectomy. The patient denies fevers, but has had crampy abdominal pain, nausea, and vomiting. No other illnesses reported. ALLERGIES: PENICILLIN. CURRENT MEDICATIONS: None, though the patient reports that he does have hypertension. PAST MEDICAL HISTORY: 1. Hypertension. 2. Gastroesophageal reflux disease. 3. Peptic ulcer disease. PAST SURGICAL HISTORY: Hernia repair and perforated ulcer repair. SOCIAL HISTORY: The patient lives independently at home with family. He quit smoking approximately 8 months ago. Drinks beer on occasion. Denies drug use. REVIEW OF SYSTEMS: A 10-point review of systems is negative except as otherwise stated. PHYSICAL EXAMINATION: VITAL SIGNS: Blood pressure 141/100, heart rate 70, respirations 17, oxygen saturation 98% on room air, and temperature is 98.0. GENERAL: The patient is sitting in ER bed. He appears in slight discomfort. He is actually pending medication administration at this time. HEENT: Unremarkable. LUNGS: Clear to auscultation with good inspiratory and expiratory effort. HEART: Regular rate and rhythm. ABDOMEN: Soft, flat with tenderness to the right upper quadrant and a positive Hollis sign. PELVIS: Stable. EXTREMITIES: Neurovascularly intact x4. There is no pitting edema noted. BACK: Nontender. There is no CVA tenderness. LABORATORY RESULTS: WBC 7.7, hemoglobin 14.7, hematocrit 42.9, platelets 232. Sodium 138, potassium 4.6, chloride 103, CO2 of 26, BUN 16, creatinine 0.90, glucose 104, total bilirubin 0.7, AST 16, ALT 17, alkaline phosphatase 39. Urinalysis is unremarkable. Lipase 23. Troponin less than 0.010. CK 124. RADIOGRAPHIC FINDINGS: Right upper quadrant ultrasound shows cholelithiasis with gallbladder sludge and gallbladder wall thickening, and report of a sonographic Hollis sign is suspicious for sonographically for acute cholecystitis. Common bile measures 4.4 mm, gallbladder wall measures 3.5 mm. AP chest x-ray shows no evidence of acute cardiopulmonary disease. ASSESSMENT: Acute cholecystitis with cholelithiasis. PLAN: Plan will be to admit the patient for laparoscopic cholecystectomy. Depending on the patient's pain tolerance postoperatively and p.o. tolerance, he may be able to be discharged home today or most likely tomorrow. The evaluation, examination, laboratory, and radiographic findings were done with Dr. Marc in the emergency department and he answered the patient and family's questions at that time also. Job ID: [id number]
[2018-10-19] MEDS ORDERED: Bupivacaine/Epinephrine 0.25% 30 ML VIAL ONE (13:25)
[2018-10-19] MEDS ORDERED: Iothalamate Meglumine 60% 50 ML VIAL FS ONE (13:25)
[2018-10-19] MEDS ORDERED: Fentanyl 100 MCG/2 ML VIAL ONE ×5 (13:41→17:35)
[2018-10-19] MEDS ORDERED: Lidocaine 1% PF 5 ML VIAL ONE (13:50)
[2018-10-19] MEDS ORDERED: Rocuronium Bromide 10 MG/ML (10ML VIAL) ONE (13:50)
[2018-10-19] MEDS ORDERED: Glycopyrrolate 0.2 MG/ML 5 ML SYRINGE ONE (13:50)
[2018-10-19] MEDS ORDERED: ePHEDrine 50 MG/ML VIAL ONE (13:50)
[2018-10-19] MEDS ORDERED: PROPOFOL 200 MG/20 ML VIAL ONE (13:50)
[2018-10-19] MEDS ORDERED: Rocuronium Bromide 50 MG/5 ML VIAL ONE (15:32)
[2018-10-19] MEDS ORDERED: SUGAMMADEX SODIUM 200 MG/2 ML VIAL ONE (16:03)
[2018-10-19] MEDS ORDERED: Ondansetron HCl/PF 4 MG/2 ML Vial IVP PRN (16:24)
[2018-10-19] MEDS ORDERED: Meperidine HCl/PF 25 MG/ML VIAL SLOW IVP PRN (16:24)
[2018-10-19] MEDS ORDERED: Promethazine HCl 25 MG/ML VIAL SLOW IVP PRN (16:24)
--- NOTE | 2018-10-19 17:09 | RAD ---
SUPINE AP ABDOMINAL RADIOGRAPH: Date: 10/19/18 HISTORY: Needle count. COMPARISON: 06/20/18. FINDINGS: There is a drainage catheter overlying the right upper quadrant. There are four surgical clips overly ing the right upper quadrant. Findings may be related to recent cholecystectomy. Gas densities within the right upper quadrant likely related to recent postsurgical changes. No additional metallic forei gn body is visualized. Bowel gas pattern is nonspecific. Degenerative changes noted in the spine. IMPRESSION: Postsurgical changes right upper quadrant with drainage catheter in place. There are four surgical cl ips seen overlying the right upper quadrant. No additional metallic foreign body is visualized overly ing the abdomen. POS: [facility]
--- NOTE | 2018-10-19 17:45 | OP ---
DATE OF PROCEDURE: 10/19/2018 PREOPERATIVE DIAGNOSIS: Acute cholecystitis with cholelithiasis. POSTOPERATIVE DIAGNOSES: 1. Acute cholecystitis with cholelithiasis. 2. Intraabdominal adhesions. PROCEDURES PERFORMED: Attempted laparoscopic and then converted to open cholecystectomy. ANESTHESIA: General endotracheal. ESTIMATED BLOOD LOSS: 300 mL. FLUIDS GIVEN: 800 mL of crystalloids. COUNTS: Sponge and instrument counts were verified as correct x2. COMPLICATIONS: None apparent at the time of operation. INDICATIONS FOR OPERATION: A 53-year-old man presented with recurrent epigastric right upper quadrant abdominal pain. Clinical radiographic examination was consistent with acute cholecystitis, cholelithiasis for which the patient was brought to the operating room for cholecystectomy. Findings are consistent with gallbladder in the usual anatomic location completely encased by dense adhesions. DESCRIPTION OF OPERATION: Informed consent was obtained from the patient. He was brought to the operating room and placed in supine position. Following general anesthesia, abdomen was sterilely prepped and draped in usual fashion. The skin below the umbilicus was infiltrated with 0.25% Marcaine with epinephrine. A small curvilinear infraumbilical incision was made using 11 scalpel. Umbilical stalk was grasped with Rios and elevated. Veress needle was inserted through the incision and placed in the peritoneal cavity through which the abdomen was insufflated with 3 L of CO2 gas. Intraabdominal pressure was noted at 3 mmHg. Following abdominal insufflation, Veress needle was removed and a 5-mm trocar was introduced using a Visiport under laparoscopy. Laparoscopy confirmed proper placement of the port, no injuries to underlying structures present. Additional laparoscopy revealed the right upper quadrant completely encased by dense omental adhesions. Under direct laparoscopy, two 5 mm right lateral subcostal ports were placed and a 12-mm epigastric port was also placed after the overlying skin was infiltrated with 0.25% Marcaine with epinephrine, and appropriate incision was made. I then introduced the [place] dissector with cautery through the epigastric port site using this to take down some of the omental adhesions with difficulty. I then introduced the LigaSure device using this to take down the dense adhesions obscuring the liver and the entire right upper quadrant. The gallbladder could not be identified once the adhesions were taken down revealing the edge of the liver down to the lateral aspect of the right lobe. I took the dissection further medially, taken down omental adhesions off the liver to the falciform ligament. The liver remained quite obscured. At this juncture, we decided to convert this to open. To accomplish this, I made a supraumbilical midline incision through the previous surgical scar that the patient had, this was completed using a 10 scalpel. Incision was carried through subcutaneous tissues maintaining hemostasis using cautery. The fascia was incised in midline, exposing the peritoneum beneath, which was grasped x2 with hemostats. Peritoneal cavity was sharply entered using Metzenbaum scissors. Bookwalter retractor was put in place to gain exposure. I then proceeded to bluntly dissect out omental adhesions off the liver. The fundus of the gallbladder was then identified and grasped with ring forceps. Omental adhesions were then completely taken down off the remainder of the gallbladder. Care was taken to avoid injury to surrounding and adherent bowel. The gallbladder was taken off the liver in a retrograde fashion. Second ring forceps was then applied at Jhonathan's pouch, which was retracted laterally. The cystic artery which was anterior coursing was dissected free from surrounding structures and divided between clips. The cystic duct was then dissected free from surrounding structures and divided between two right-angle forceps. The stump of the cystic duct was ligated with a stick tie of 2-0 silk and then reinforced with a single clip. The gallbladder was removed from the abdominal cavity. Operative site was inspected for good hemostasis. There was minor oozing from the gallbladder fossa. Hemostasis was readily achieved using Princess. #19 [place] drain was introduced into the subhepatic space and allowed to exit the abdominal cavity through the right lateral subcostal port. The drain was secured to the anterior abdominal wall using 2-0 silk suture. Finding no other pathology, exploration was terminated. All sponges and instruments having been removed and accounted for. Fascia was approximated in midline using a running stitch of #1 single stranded PDS. Skin incisions were closed using alfredo. Sterile dressings were applied. The patient tolerated the operation without any apparent complication and was returned to recovery room in satisfactory condition. Job ID: [id number]
[2018-10-19 18:00] VITALS: BMI 30.6
[2018-10-19] MEDS: Ketorolac Tromethamine 30 MG/ML VIAL IVP SCH ×3 (18:45→23:57)
[2018-10-19] MEDS: Lactated Ringer's 1,000 ML IV SCH ×2 (18:48→23:09)
[2018-10-19] MEDS ORDERED: traMADol HCl 50 MG TAB PO PRN (19:14)
[2018-10-19] MEDS: Acetaminophen 500 MG TAB PO SCH (19:29)
[2018-10-19] MEDS: Famotidine 20 MG TAB PO SCH (19:29)
[2018-10-19] MEDS: traMADol HCl 50 MG TAB PO PRN (19:30)
[2018-10-19] MEDS ORDERED: Morphine 4 MG/ML VIAL SLOW IVP PRN (22:26)
[2018-10-19] MEDS: Famotidine/PF 20 mg/2ml Vial SLOW IVP SCH (23:08)
[2018-10-20] MEDS: Acetaminophen 500 MG TAB PO SCH ×4 (02:17→20:46)
[2018-10-20] MEDS: Ketorolac Tromethamine 30 MG/ML VIAL IVP SCH ×3 (05:50→17:52)
[2018-10-20] MEDS: Lactated Ringer's 1,000 ML IV SCH (05:51)
[2018-10-20 06:22] LABS: #Lymphocytes 0.6 thou/uL (1.20-3.40); #Monocytes 0.6 thou/uL (0.11-0.59); %Basophils 0.3 % (0.0-1.0); %Eosinophils 0.3 % (0.0-10.0); %Lymphocytes 8.8 % (21.0-51.0); %Neutrophils 82.6 % (42.0-75.0); Hemoglobin 11.8 g/dL (14.0-18.0); Mean Corpuscular HGB CONC 33.9 g/dL (32.0-36.0); Mean Corpuscular Hemoglobin 33.4 pg (27.0-31.0); Mean Corpuscular Volume 98.6 fL (78.0-98.0); Mean Platelet Volume 6.7 fL (7.4-10.4); Platelet Count 179 thou/uL (130-400); RBC Distribution Width 11.6 % (11.5-14.5); Red Blood Cell (RBC) Count 3.53 mill/uL (4.70-6.10); White Blood Cell (WBC) Count 7.2 thou/uL (4.8-10.8)
[2018-10-20 06:46] LABS: ALT (SGPT) 233 U/L (8-55); AST (SGOT) 184 U/L (5-34); Albumin 3.6 g/dL (3.5-5.0); Alkaline Phosphatase 49 U/L (40-150); Anion Gap 10 mmol/L (10-20); BUN (Urea Nitrogen) 15 mg/dL (8.4-25.7); Bilirubin, Total 1.3 mg/dL (0.2-1.2); Calc. Creatinine Clearance 146 mL/min (70-130); Calcium 8.6 mg/dL (7.8-10.44); Carbon Dioxide 26 mmol/L (22-29); Chloride 104 mmol/L (98-107); Estimated GFR-MDRD Greater than 90; Globulin 2.1 g/dL (2.4-3.5); Glucose 130 mg/dL (70-105); Potassium 4.3 mmol/L (3.5-5.1); Protein, Total 5.7 g/dL (6.0-8.3); Sodium 136 mmol/L (136-145)
[2018-10-20] MEDS: Famotidine/PF 20 mg/2ml Vial SLOW IVP SCH (08:32)
[2018-10-20] MEDS: Famotidine 20 MG TAB PO SCH ×2 (08:36→20:47)
[2018-10-20] MEDS: Enoxaparin Sodium 40 MG/0.4 ML SYRINGE SC SCH (10:11)
[2018-10-20] MEDS: traMADol HCl 50 MG TAB PO PRN (12:26)
--- NOTE | 2018-10-20 14:26 | PRG ---
DATE OF SERVICE: 10/20/2018 SUBJECTIVE: The patient is postop day 1 status post an attempted laparoscopic and then converted to open cholecystectomy. He was admitted for acute cholecystitis with cholelithiasis after increasing abdominal pain. The patient tolerated the procedure well. Overnight, he did have some pain that required one dose of morphine, but after midnight, his pain was controlled. This morning, he is tolerating a clear liquid diet, but at this time, he does not feel that he wants to advance his diet yet. PHYSICAL EXAMINATION: VITAL SIGNS: Temperature is 98.3, heart rate 91, blood pressure 108/75, respirations 18, oxygen saturation 91% on room air. GENERAL: The patient is resting comfortably in bed. He is awake, alert, oriented, and appropriate. He appears in no distress. HEENT: Unremarkable. LUNGS: Clear to auscultation with good inspiratory and expiratory effort. HEART: Regular rate and rhythm. ABDOMEN: Soft, flat, nontender with hypoactive bowel sounds. Abdominal dressing is clean, dry, and intact. EXTREMITIES: Neurovascularly intact. LABORATORY FINDINGS: White blood cell count 7.2, hemoglobin 11.8, hematocrit 34.8, platelets 179. Sodium 136, potassium 4.3, chloride 104, CO2 of 26, BUN 15, creatinine 0.86, glucose 130. Total bilirubin 1.3, direct bilirubin 0.5, AST 184, ALT 233, alkaline phosphatase 49. There are no radiographs reviewed this morning. ASSESSMENT: Status post attempted laparoscopic and then converted to open cholecystectomy. PLAN: Plan will be to continue supportive care. Encourage ambulation. Advance diet as tolerated and repeat labs in the morning. The evaluation, examination, and laboratory findings were discussed with Dr. Marc this morning. Job ID: [id number]
[2018-10-20] MEDS: Senokot S 8.6-50 MG TAB PO SCH (20:49)
[2018-10-21] MEDS: Ketorolac Tromethamine 30 MG/ML VIAL IVP SCH ×2 (00:31→06:05)
[2018-10-21] MEDS: Acetaminophen 500 MG TAB PO SCH ×3 (02:52→14:51)
[2018-10-21 05:47] LABS: ALT (SGPT) 135 U/L (8-55); AST (SGOT) 66 U/L (5-34); Albumin 3.4 g/dL (3.5-5.0); Alkaline Phosphatase 43 U/L (40-150); Anion Gap 10 mmol/L (10-20); BUN (Urea Nitrogen) 11 mg/dL (8.4-25.7); Bilirubin, Direct 0.6 mg/dL (0.1-0.3); Bilirubin, Total 1.2 mg/dL (0.2-1.2); Calc. Creatinine Clearance 153 mL/min (70-130); Calcium 8.5 mg/dL (7.8-10.44); Carbon Dioxide 28 mmol/L (22-29); Chloride 105 mmol/L (98-107); Estimated GFR-MDRD Greater than 90; Glucose 105 mg/dL (70-105); Potassium 3.6 mmol/L (3.5-5.1); Protein, Total 5.5 g/dL (6.0-8.3); Sodium 139 mmol/L (136-145)
[2018-10-21 07:59] LABS: Phosphorus 2.2 mg/dL (2.3-4.7)
[2018-10-21] MEDS ORDERED: Ibuprofen 800 MG TAB PO SCH ×2 (09:00→12:00)
[2018-10-21] MEDS ORDERED: Potassium Phosphate 15 MMOL in Sodium Chloride 0.9% 250 ML 250 ML IVPB SCH (09:00)
[2018-10-21] MEDS ORDERED: Polyethylene Glycol 3350 17 GM Packet PO SCH (09:00)
[2018-10-21] MEDS: Enoxaparin Sodium 40 MG/0.4 ML SYRINGE SC SCH (09:24)
[2018-10-21] MEDS: Famotidine 20 MG TAB PO SCH (09:24)
[2018-10-21] MEDS: Senokot S 8.6-50 MG TAB PO SCH (09:25)
[2018-10-21] MEDS: traMADol HCl 50 MG TAB PO PRN (10:10)
[2018-10-21 11:44] VITALS: BP 156/80; TEMP 98
--- NOTE | 2018-10-21 13:13 | DIS ---
DATE OF ADMISSION: 10/19/2018 DATE OF DISCHARGE: 10/21/2018 ADMISSION DIAGNOSIS: Acute cholecystitis with cholelithiasis. DISCHARGE DIAGNOSIS: Acute cholecystitis with cholelithiasis. OPERATION PERFORMED: Laparoscopic converted to open cholecystectomy. Surgery occurred on 10/19/2018. Please see a separate dictation for operative report. HISTORY AND HOSPITAL COURSE: This is a 53-year-old man who presented with recurrent epigastric right upper quadrant abdominal pain. Clinical radiographic examination was consistent with acute cholecystitis with cholelithiasis for which the patient was brought to the operating room for cholecystectomy. Following surgery, the patient was admitted to surgical floor, where he remained at time of discharge. On postop day #2, he is ambulating with minimal difficulty. He is tolerating general diet having normal bowel and urinary function. His pain control is improving, although using incentive spirometer this morning, the patient was only achieving a little less than 1000 mL. He was not using the tramadol, which was prescribed for his pain management. PHYSICAL EXAMINATION: VITAL SIGNS: Otherwise this morning includes blood pressure 138/90, pulse 99, respiratory rate 17, temperature 98.7 degrees Fahrenheit, oxygen saturation 92% on room air. HEENT: Reveals pupils are equal, round, reactive to light and accommodation. HEART: Reveals regular rate and rhythm. No murmurs or gallops auscultated. LUNGS: Clear to auscultation bilaterally. Breathing, regular nonlabored. ABDOMEN: Soft and nondistended. Incision is intact, clean and dry. Rodolfo-Temple drain was removed. No active bleeding at the drainage site. NEUROLOGIC: Reveals no focal deficits present. LABORATORY FINDINGS: Today included metabolic profile, sodium 139, potassium 3.6, chloride is 105, bicarb 28, BUN 11, creatinine 0.82, glucose 105, total bilirubin is normal at 1.2, AST and ALT improving 66 and 135 respectively in contrast to 184 and 233 respectively yesterday. The patient will be discharged home today with the following instructions. 1. He follow up with me in the Surgery Clinic in 10 days at which time alfredo will be removed. 2. He is encouraged to increase his activity and take his pain medications for better pain management. 3. He has been duly instructed on the use of the incentive spirometer. The goal is to achieve at least 3686-3296 mL. 4. He is encouraged to take deep breath and cough. 5. The patient is to call me with any questions or problems including exacerbation of abdominal pain, intolerance to oral intake, fever in excess of 101 degrees Fahrenheit, or any abnormal drainage from the incisional or wound itself. 6. The patient indicates understanding information I have given him in the presence of his . 7. He may take Tylenol 1000 mg p.o. q.6 hours alternating this with ibuprofen. Ibuprofen 800 mg p.o. q.8 hours p.r.n. pain. Additionally, he was given a prescription for tramadol 50 mg #30 to be taken 1 to 2 p.o. q.6 hours p.r.n. breakthrough pain. 8. The patient indicates understanding information given to him today. I have answered his questions. Job ID: [id number]
--- NOTE | 2018-10-22 20:33 | EKG ---
Test Reason : Blood Pressure : / mmHG Vent. Rate : 071 BPM Atrial Rate : 071 BPM P-R Int : 126 ms QRS Dur : 096 ms QT Int : 394 ms P-R-T Axes : 059 055 052 degrees QTc Int : 428 ms Normal sinus rhythm Normal ECG Confirmed by LUCIE BROOKS MD ([id number]), editor in chief BENJI WEBB ([id number]) on 10/22/2018 8:32:49 PM Referred By: Confirmed By:LUCIE BROOKS MD
== END 2018-10-21 15:45 | disposition home or self-care (01) ==
LOC: ERS 07:32 → SJJU 17:45
PROVIDERS: ADMIT Surgery; ATTEND Surgery
PROC: 0FJ44ZZ Inspection of Gallbladder, Percutaneous Endoscopic Approach (ICD-10-PCS; principal; 2018-10-19)
PROC: 0FT40ZZ Resection of Gallbladder, Open Approach (ICD-10-PCS; 2018-10-19)
DX: K80.00 Calculus of gallbladder with acute cholecystitis without obstruction (principal); I10 Essential (primary) hypertension; K27.9 Peptic ulcer, site unspecified, unspecified as acute or chronic, without hemorrhage or perforation; K21.9 Gastro-esophageal reflux disease without esophagitis; Z53.31 Laparoscopic surgical procedure converted to open procedure; Z87.891 Personal history of nicotine dependence; Z88.0 Allergy status to penicillin
CPT/HCPCS: 36415; 71045; 74018; 76705; 80048; 80053; 80076; 81003; 82248; 82550; 83690; 83735; 84100; 84484; 85025; 88304; 93005; 94640; 96361; 96365; 96366; 96367; 96372; 96375; 96376; C9113; G0378; J0131; J1650; J1885; J1956; J2001; J2270; J2405; J2704; J3010; J3490; J7050; J7620; Q9961; S0028